=== PATIENT | male | born 2000 | race Caucasian/White ===

== ENCOUNTER 2023-03-13 13:16 | Emergency (ER) | payer BC, SELFPAY ==
[2023-03-13 14:06] VITALS: BP 120/72; PULSE 54; RESP 16; TEMP 37.1; O2SAT 100
--- NOTE | 2023-03-13 15:37 | ED.GENADULT ---
HPI - General Adult General Chief complaint: Urogenital-Male Stated complaint: Rash on Penis Source: patient Mode of arrival: ambulatory Limitations: no limitations History of Present Illness HPI narrative: Patient presents for evaluation of skin concerns. He indicates he has had skin lesions and a rash to his abdomen on and off for several months. He has seen a pals specialist and has been on several topical therapies. One of the lesions was biopsied and he was told it was eczema. Topical steroids did not help. In the last week he has noted skin changes to his inguinal regions bilaterally, scrotum, penile shaft and scrotum. He states that the areas are painful. He had unprotected insertive vaginal intercourse in January of this year. He contacted the female with whom he was sexually active and she does not have any symptoms. He does not have a history of herpes and states that she does not either. He denies any discharge from his penis. Denies any dysuria or other urinary symptoms. He is concerned he may have a sexually transmitted infection. He also did perform oral intercourse on the partner from January sexual contact. Related Data Home Medications Medication Instructions Recorded Confirmed No Home Medications 03/13/23 03/13/23 Allergies Allergy/AdvReac Type Severity Reaction Status Date / Time No Known Allergies Allergy Unverified 03/13/23 15:34 Review of Systems Review of Systems: CONSTITUTIONAL: Denies fever, chills, or sweats. EYES: Denies visual changes, redness, or discharge. ENT: Denies rhinorrhea, congestion, sore throat, or otalgia. CARDIOVASCULAR: Denies chest pain, palpitations, or edema. RESPIRATORY: Denies cough or dyspnea. GASTROINTESTINAL: Denies abdominal pain, nausea, vomiting, or diarrhea. GENITOURINARY: Denies dysuria or hematuria. Denies urethral discharge. SKIN: Reports rash for several months the abdomen. Reports new skin changes to the scrotum, bilateral inguinal regions and penile shaft MUSCULOSKELETAL: Denies back pain, joint pain, or myalgia. NEUROLOGIC: Denies headache, numbness, dizziness, or weakness. PSYCHIATRIC: Denies anxiety or depression. [facility] Past Medical History Medical History Eczema Surgical History Surgical History No pertinent past surgical history Family History Family History Mother Family history non-contributory Social History Social History Smoking status: Never smoker Substance use: never Living arrangements: with family Occupation/Education: student Gender identity (if verbalized by the patient): Male Sexual Orientation (if Verbalized by the Patient): Straight or Heterosexual Spiritual care concerns: No Exam Narrative: GENERAL: Well-appearing, well-nourished, and in no acute distress. HEAD: Normocephalic, atraumatic. EYES: PERRLA and EOMI. ENT: Nares clear, no rhinorrhea or epistaxis. Mucous membranes moist. Oropharynx without tonsillar hypertrophy exudate or other lesions. Bilateral TMs pearly hodge nonbulging NECK: Supple. No adenopathy or masses. No carotid bruits or JVD CHEST: Clear to auscultation. No respiratory distress. No wheezes rales or rhonchi HEART: Regular rate and rhythm. No murmur heard. Normal peripheral pulses. ABDOMEN: Soft, nontender, nondistended, normal active bowel sounds. EXTREMITIES: Normal range of motion. No edema. SKIN: There are several hyperpigmented annular lesions to abdomen which are brown in appearance, some of which have overlying scaling and erythema. There are patchy areas of erythema and excoriation to bilateral inguinal regions, scrotum and penile shaft, some of which appear to be erupted vesicles. There are also areas of erythema surrou
[2023-03-13 17:54] LABS: Trichomonas Vag PCR NOT DETECTED (NOT DETECTE)
[2023-03-13 18:16] LABS: Chlamydia trachomatis NOT DETECTED (NOT DETECTE); Neisseria gonorrhoeae PCR NOT DETECTED (NOT DETECTE)
[2023-03-13 18:17] LABS: Chlamydia trachomatis NOT DETECTED (NOT DETECTE); Neisseria gonorrhoeae PCR NOT DETECTED (NOT DETECTE)
== END 2023-03-13 15:38 | disposition home or self-care (01) ==
PROVIDERS: Emergency Provider Nurse Practitioner; PCP Pediatrics
DX: L73.9 Follicular disorder, unspecified (principal); Z20.2 Contact with and (suspected) exposure to infections with a predominantly sexual mode of transmission
CPT/HCPCS: 87070; 87075; 87205; 87255; 87491; 87591; 87661; 99213; G0463